=== PATIENT | female | born 1990 | race Caucasian/White ===

== ENCOUNTER 2018-06-07 17:53 | Emergency (ER) | payer MEDICAID, OTHER ==
[2018-06-07 18:43] LABS: HCG UR QUAL POSITIVE
[2018-06-07 19:27] LABS: BASOPHILS % (AUTO) 0.5 %; EOSINOPHILS # (AUTO) 0.2 10^3/uL (0.0-0.7); EOSINOPHILS % (AUTO) 2.4 %; HGB - HEMOGLOBIN 13.4 g/dL (12.0-16.0); LYMPHOCYTES # (AUTO) 2.4 10^3/uL (1.5-3.5); LYMPHOCYTES % (AUTO) 26.6 %; MEAN CORPUSCULAR HEMOGLOBIN 28.9 pg (27.0-31.0); MEAN CORPUSCULAR HGB CONC 33.7 g/dL (32.0-36.0); MEAN CORPUSCULAR VOLUME 85.7 fL (81.0-99.0); MEAN PLATELET VOLUME 7.1 fL (7.9-10.8); MONOCYTES # (AUTO) 0.7 10^3/uL (0.0-1.0); MONOCYTES % (AUTO) 7.3 %; NEUTROPHILS # (AUTO) 5.7 10^3/uL (1.5-6.6); NEUTROPHILS % (AUTO) 63.2 %; PLT - PLATELET COUNT 294 10^3/uL (130-450); RED BLOOD COUNT 4.65 10^6/uL (4.20-5.40); RED CELL DISTRIBUTION WIDTH 13.6 % (12.0-15.0)
[2018-06-07 19:43] LABS: ALBUMIN 4.5 g/dL (3.2-5.5); ALBUMIN/GLOBULIN RATIO 1.5 (1.0-2.2); BILIRUBIN,TOTAL 0.3 mg/dL (0.2-1.0); CALCIUM 9.4 mg/dL (8.5-10.3); CREATININE 0.8 mg/dL (0.4-1.0); TOTAL PROTEIN 7.5 g/dL (6.7-8.2)
[2018-06-07 21:16] LABS: BILIRUBIN,URINE NEGATIVE (NEGATIVE); GLUCOSE, URINE (UA) NEGATIVE (NEGATIVE); KETONES,URINE (UA) NEGATIVE (NEGATIVE); LEUKOCYTE ESTERASE, URINE NEGATIVE (NEGATIVE); NITRITE,URINE NEGATIVE (NEGATIVE); OCCULT BLOOD,URINE LARGE (NEGATIVE); PROTEIN,URINE NEGATIVE (NEGATIVE); UROBILINOGEN,URINE 0.2 (NORMAL) E.U./dL (NORMAL)
--- NOTE | 2018-06-07 21:18 | ED Physician Documentation ---
PD HPI FEMALE - Stated complaint Stated Complaint: BLEEDING/3 WKS - Chief complaint Chief Complaint: General - History obtained from History obtained from: Patient - History of Present Illness Timing - onset: Today Timing - details: Gradual onset, Still present Associated symptoms: Pelvic pain, Vaginal bleeding OB-[employer] History: G (4), P (0) Similar symptoms before: Work up / diagnostics, Treatment Recently seen: Clinic - Additional information Additional information: Patient is a 27 year old female who is presenting to the emergency department for vaginal bleeding. patient had a d/c done a little over a month ago. patient had some vaginal spotting and passed a few clots yesterday. patient took a test that was positive. patient was sent in by her doctor for ultrasound and further evaluation. Review of Systems Ten Systems: 10 systems reviewed and negative GI: reports: Abdominal Pain : reports: Vaginal bleeding Neurologic: denies: Near syncope, Syncope PD PAST MEDICAL HISTORY - Past Medical History Past Medical History: Yes Cardiovascular: Hypertension Respiratory: Asthma Neuro: Migraines Endocrine/Autoimmune: HyPOthyroidism GI: GERD [employer]: Ovarian cysts HEENT: None Psych: Depression, Anxiety, Bipolar disorder, Obsessive compulsive disorder Musculoskeletal: None Derm: None - Past Surgical History Past Surgical History: Yes /[employer]ER: Dilation and currettage - Present Medications Home Medications: Ambulatory Orders Medication Instructions Recorded Confirmed No Known Home Medications 06/07/18 06/07/18 - Allergies Allergies/Adverse Reactions: Allergies Allergy/AdvReac Type Severity Reaction Status Date / Time ondansetron HCl * Allergy Itching Verified 02/24/15 23:32 [From Zofran] - Social History Does the pt smoke?: No Smoking Status: Never smoker Does the pt drink ETOH?: Yes Does the pt have substance abuse?: No - Immunizations Immunizations are current?: Yes - POLST Patient has POLST: No PD ED PE NORMAL - Vitals Vital signs reviewed: Yes - General General: Alert and oriented X 3, No acute distress - HEENT HEENT: Atraumatic - Cardiac Cardiac: RRR - Respiratory Respiratory: No respiratory distress - Abdomen Abdomen: Soft, Non distended - Derm Derm: Normal color, Warm and dry, No rash - Extremities Extremities: No deformity - Neuro Neuro: Alert and oriented X 3, No motor deficit, Normal speech Eye Opening: Spontaneous Motor: Obeys Commands Verbal: Oriented GCS Score: 15 - Psych Psych: Normal mood Results - Vitals Vitals: Oxygen O2 Source Room air - Labs Labs: Laboratory Tests 06/07/18 06/07/18 06/07/18 18:10 19:16 19:16 WBC 9.0 RBC 4.65 Hgb 13.4 Hct 39.8 MCV 85.7 MCH 28.9 MCHC 33.7 RDW 13.6 Plt Count 294 MPV 7.1 L Neut # (Auto) 5.7 Lymph # (Auto) 2.4 [place] # (Auto) 0.7 Eos # (Auto) 0.2 Baso # (Auto) 0.0 Absolute Nucleated RBC 0.01 Nucleated RBC % 0.1 Sodium 136 Potassium 3.4 L Chloride 103 Carbon Dioxide 25 Anion Gap 8.0 BUN 9 Creatinine 0.8 Estimated GFR (MDRD) 87 L Glucose 110 H Calcium 9.4 Total Bilirubin 0.3 AST 68 H ALT 58 Alkaline Phosphatase 79 Total Protein 7.5 Albumin 4.5 Globulin 3.0 Albumin/Globulin Ratio 1.5 Lipase 26 HCG, Quant Urine Color Urine Clarity Urine pH Ur Specific [place] >=1.030 H Urine Protein Urine Glucose (UA) Urine Ketones Urine Occult Blood Urine Nitrite Urine Bilirubin Urine Urobilinogen Ur Leukocyte Esterase Urine RBC Urine WBC Ur Squamous Epith Cells Urine Crystals Amorphous Sediment Urine Bacteria Ur Microscopic Review Urine Culture Comments Urine HCG, Qual POSITIVE Blood Type 06/07/18 06/07/18 06/07/18 19:16 19:33 20:30 WBC RBC Hgb Hct MCV MCH MCHC RDW Plt Count MPV Neut # (Auto) Lymph # (Auto) [place] # (Auto) Eos # (Auto) Baso # (Auto) Absolute Nucleated RBC Nucleated RBC % Sodium Potassium Chloride Carbon Dioxide Anion Gap BUN Creatinine Estimated GFR (MDRD) Glucose Calcium Total Bilirubin AST ALT Alkaline Phosphatase Total Protein Albumin Globulin Albumin/Globulin Ratio Lipase HCG, Quant 4468.00 Urine Color YELLOW Urine Clarity HAZY Urine pH 6.0 Ur Specific [place] >=1.030 H Urine Protein NEGATIVE Urine Glucose (UA) NEGATIVE Urine Ketones NEGATIVE Urine Occult Blood LARGE H Urine Nitrite NEGATIVE Urine Bilirubin NEGATIVE Urine Urobilinogen 0.2 (NORMAL) Ur Leukocyte Esterase NEGATIVE Urine RBC 6-10 H Urine WBC 0-3 Ur Squamous Epith Cells NONE SEEN Urine Crystals 0-2 Calcium Oxalate Amorphous Sediment Moderate Urine Bacteria None Seen Ur Microscopic Review INDICATED Urine Culture Comments NOT INDICATED Urine HCG, Qual Blood Type O POSITIVE - Rads (name of study) pelvic ultrasound Radiology: Final report received (possible early iup vs miscarriage) PD MEDICAL DECISION MAKING - ED course Complexity details: reviewed old records, reviewed results, re-evaluated patient, considered differential, d/w patient ED course: patient was seen and examined at bedside. labs were drawn, urine was collected and imaging was ordered. when patient returned from imaging results were reviewed. patient had early IUP vs miscarriage which was more likely. patient was made aware of the findings and the importance of repeat beta hcg and ultrasound. patient understood and was comfortable with the plan. Patient was stable for discharge with outpatient follow up. - Sepsis Event Vital Signs: Oxygen O2 Source Room air Departure - Departure Disposition: Home, Self Care Clinical Impression: Threatened in first trimester Condition: Good Instructions: ED Miscarriage Poss Follow-Up: primary,care provider [Other] - Tomorrow Comments: Your ultrasound and blood work are consistent with early . There is a chance that you are going to miscarry so it is important that you follow up with your doctor tomorrow to schedule follow up beta hcg and ultrasound. Your hcg today was around 4000. You can take tylenol as needed for pain. You should avoid any heavy lifting or strenuous activity. Discharge Date/Time: 06/07/18 22:20
[2018-06-07 21:25] VITALS: BP 140/92
[2018-06-07 21:28] LABS: CLARITY,URINE HAZY (CLEAR)
[2018-06-07 21:32] LABS: AMORPHOUS SEDIMENT,UR Moderate /LPF; BACTERIA,URINE None Seen /HPF (None Seen); SQUAMOUS EPITHELIAL CELL,UR NONE SEEN (<= Few)
[2018-06-07 21:33] LABS: CRYSTALS,URINE 0-2 Calcium Oxalate /LPF
--- NOTE | 2018-06-07 22:01 | Ultrasound Report ---
Reason: preg, vaginal bleeding Procedure Date: 06/07/2018 Accession Number: [id number] / [id number] Procedure: US - OB Transvaginal CPT Code: FULL RESULT: EXAM: OB TRANSVAGINAL FIRST TRIMESTER OBSTETRIC ULTRASOUND (LESS THAN 11 WEEKS). EXAM DATE: 06/07/2018 08:38 PM. CLINICAL HISTORY: , vaginal bleeding. History of D LMP: Unsure. COMPARISONS: None. TECHNIQUE: Transvaginal ultrasound examination with static image documentation. ASSESSMENT: Gestational Sac: Possible intrauterine gestational sac with flattened irregular appearance seen in the lower uterine segment. Mean gestational sac diameter: 7.7 mm = 4 weeks 5 days. Embryo: CRL (crown-rump length) possible embryo measuring 3.1 mm. Cardiac activity: Not seen. Yolk sac: Not seen. Amniotic fluid: Not accurately assessed at this gestational age. Early placenta: Not visible at this gestational age. Other: No perigestational fluid collection demonstrated. MATERNAL STRUCTURES: Uterus: Anteverted. Unremarkable. Cervix: Closed. Right Ovary/Adnexa: The ovary measures 2.1 x 1.2 x 1.1 cm, volume 1.5 cc. Unremarkable. Left Ovary/Adnexa: The ovary measures 2.5 x 2.7 x 2.6 cm, volume 8.9 cc. Corpus luteum measuring 1.9 cm. Free Fluid: None. Unremarkable. IMPRESSION: 1. Possible intrauterine gestational sac with flattened irregular appearance in the lower uterine segment, could be a spontaneous in progress. The size corresponds to 4 weeks 5 days gestational age. Differential includes focal small complex fluid or pseudo-gestational sac. Possible embryo within this possible gestational sac. No cardiac activity is seen. 2. No evidence for an ectopic . An ectopic is not excluded. Follow-up is recommended. Correlate with serial beta hCGs. RADIA
== END 2018-06-07 22:20 | disposition home or self-care (01) ==
LOC: ED 17:53
DX: O20.0 Threatened abortion (principal); Z3A.01 Less than 8 weeks gestation of pregnancy; I10 Essential (primary) hypertension; E03.9 Hypothyroidism, unspecified
CPT/HCPCS: 36415; 76817; 80053; 81001; 81003; 81025; 83690; 84702; 85025; 86900; 86901; 87086; 99283

== ENCOUNTER 2018-06-17 23:59 | Emergency (ER) | payer OTHER ==
--- NOTE | 2018-06-18 02:55 | Ultrasound Report ---
Reason: with pain Procedure Date: 06/18/2018 Accession Number: [id number] / [id number] Procedure: US - OB First Trimester CPT Code: FULL RESULT: EXAM: FIRST TRIMESTER OBSTETRIC ULTRASOUND (Less than 11 weeks) EXAM DATE: 06/18/2018 02:40 AM. CLINICAL HISTORY: with pain. LMP: Unknown. COMPARISONS: 06/07/2018. TECHNIQUE: Transabdominal and transvaginal ultrasound examination with static image documentation. CLINICAL DATES: EGA 7 weeks 3 days with RAI 02/01/2019 based on prior ultrasound. ASSESSMENT: Gestational Sac: Single intrauterine, in the lower uterine segment. Mean gestational sac diameter: 13.7 mm = 5 weeks 3 days. Embryo: CRL (crown-rump length) 4.4 mm = 6 weeks 2 days. Cardiac activity: 121 beats per minute. Yolk sac: 2.7 mm. Amniotic fluid: Not accurately assessed at this gestational age. Early placenta: Not visible at this gestational age. Other: Small hemorrhage adjacent to the gestational sac measuring 9 x 4 x 5 mm. MATERNAL STRUCTURES: Uterus: Anteverted. Unremarkable. Cervix: Closed. Right Ovary/Adnexa: The ovary measures 3.4 x 1.7 x 1.9 cm, volume 5.7 cc. Unremarkable. Left Ovary/Adnexa: The ovary measures 3.0 x 2.9 x 2.3 cm, volume 10.4 cc. Cyst measuring 1.4 x 1.5 x 1.5 cm. Free Fluid: None. . Other: None. IMPRESSION: 1. Single viable intrauterine in the lower uterine segment at EGA 6 weeks 2 days with RAI 02/09/2019 based on crown-rump length, which is discordant with prior ultrasound. 2. Assigned dating is RAI 02/09/2019 based on current US. 3. Small hemorrhage adjacent to the gestational sac measuring 9 x 4 x 5 mm. RADIA
[2018-06-18 03:45] LABS: BILIRUBIN,URINE NEGATIVE (NEGATIVE); GLUCOSE, URINE (UA) NEGATIVE (NEGATIVE); KETONES,URINE (UA) NEGATIVE (NEGATIVE); LEUKOCYTE ESTERASE, URINE NEGATIVE (NEGATIVE); NITRITE,URINE NEGATIVE (NEGATIVE); OCCULT BLOOD,URINE LARGE (NEGATIVE); PROTEIN,URINE 30 mg/dL (NEGATIVE); UROBILINOGEN,URINE 0.2 (NORMAL) E.U./dL (NORMAL)
[2018-06-18 03:48] LABS: BACTERIA,URINE Rare /HPF (None Seen); CLARITY,URINE CLEAR (CLEAR); RBC,URINE TNTC /HPF (0-5); SQUAMOUS EPITHELIAL CELL,UR NONE SEEN (<= Few)
--- NOTE | 2018-06-18 04:12 | ED Physician Documentation ---
History of Present Illness - Stated complaint Stated Complaint: FEMALE - Chief complaint Chief Complaint: Abd Pain - Additonal information Additional information: 27-year-old female presents the emergency department with vaginal bleeding and lower abdominal cramping. The patient reports being 6 weeks and developed significant bleeding and cramping this afternoon. The patient has a history of multiple miscarriages in the past. The patient denies focal abdominal pain. The patient denies chest pain, shortness of breath. Symptoms are described as moderate. No other associated symptoms. No relieving factors. No triggering factors Review of Systems Constitutional: denies: Fever Eyes: denies: Loss of vision Ears: denies: Ear pain Nose: denies: Foreign Body Throat: denies: Sore throat Cardiac: denies: Palpitations Respiratory: denies: Cough GI: reports: Abdominal Pain (Abdominal cramping) : reports: Vaginal bleeding Skin: denies: Rash Musculoskeletal: denies: Extremity pain Neurologic: denies: Generalized weakness PD PAST MEDICAL HISTORY - Past Medical History Past Medical History: Yes Cardiovascular: Hypertension Respiratory: Asthma Neuro: Migraines Endocrine/Autoimmune: HyPOthyroidism GI: GERD [place]: Ovarian cysts HEENT: None Psych: Depression, Anxiety, Bipolar disorder, Obsessive compulsive disorder Musculoskeletal: None Derm: None - Past Surgical History Past Surgical History: Yes /[place]: Dilation and currettage - Present Medications Home Medications: Ambulatory Orders Medication Instructions Recorded Confirmed Metoclopramide [Reglan] 10 mg PO TID 06/18/18 06/18/18 Pnv95/Ferrous Fumarate/FA 1 tab PO DAILY 06/18/18 06/18/18 [ Formula Tablet] Progesterone,Micronized 06/18/18 [Progesterone] - Allergies Allergies/Adverse Reactions: Allergies Allergy/AdvReac Type Severity Reaction Status Date / Time ondansetron HCl * Allergy Itching Verified 06/18/18 00:13 [From Zofran] - Social History Does the pt smoke?: No Smoking Status: Former smoker Does the pt drink ETOH?: Yes Does the pt have substance abuse?: No - Immunizations Immunizations are current?: Yes - POLST Patient has POLST: No PD ED PE NORMAL - General General: Alert and oriented X 3, No acute distress - HEENT HEENT: Atraumatic, PERRL, EOMI, Ears normal - Neck Neck: Supple, no meningeal sign - Cardiac Cardiac: Strong equal pulses - Respiratory Respiratory: No respiratory distress, Clear bilaterally - Abdomen Abdomen: Soft, Non tender - Derm Derm: Normal color - Neuro Neuro: Alert and oriented X 3, Normal speech - Psych Psych: Normal mood Results - Vitals Vitals: Vital Signs - 24 hr 06/18/18 06/18/18 06/18/18 00:03 01:27 03:36 Temperature 36.3 C L Heart Rate 129 H 92 107 H Respiratory 16 20 20 Rate Blood Pressure 139/101 H 138/76 H 128/89 H O2 Saturation 98 99 100 06/18/18 04:46 Temperature Heart Rate 119 H Respiratory 20 Rate Blood Pressure 128/88 H O2 Saturation 99 Oxygen O2 Source Room air - Labs Labs: Laboratory Tests 06/18/18 06/18/18 06/18/18 03:03 03:55 03:55 WBC 12.2 H RBC 4.22 Hgb 12.0 Hct 36.2 L MCV 85.8 MCH 28.5 MCHC 33.2 RDW 13.8 Plt Count 286 MPV 7.6 L Neut # (Auto) 8.7 H Lymph # (Auto) 2.4 [place] # (Auto) 0.9 Eos # (Auto) 0.1 Baso # (Auto) 0.1 Absolute Nucleated RBC 0.01 Nucleated RBC % 0.1 Sodium 136 Potassium 4.0 Chloride 102 Carbon Dioxide 23 Anion Gap 11.0 BUN 19 Creatinine 0.9 Estimated GFR (MDRD) 76 L Glucose 114 H Calcium 9.2 Total Bilirubin 0.4 AST 29 ALT 35 Alkaline Phosphatase 74 Total Protein 7.5 Albumin 4.3 Globulin 3.2 Albumin/Globulin Ratio 1.3 Lipase 23 HCG, Quant Urine Color RED/BLOODY Urine Clarity CLEAR Urine pH 6.0 Ur Specific [place] >=1.030 H Urine Protein 30 H Urine Glucose (UA) NEGATIVE Urine Ketones NEGATIVE Urine Occult Blood LARGE H Urine Nitrite NEGATIVE Urine Bilirubin NEGATIVE Urine Urobilinogen 0.2 (NORMAL) Ur Leukocyte Esterase NEGATIVE Urine RBC TNTC H Urine WBC 0-3 Ur Squamous Epith Cells NONE SEEN Urine Bacteria Rare Ur Microscopic Review INDICATED Urine Culture Comments NOT INDICATED Blood Type Antibody Screen 06/18/18 06/18/18 03:55 03:55 WBC RBC Hgb Hct MCV MCH MCHC RDW Plt Count MPV Neut # (Auto) Lymph # (Auto) [place] # (Auto) Eos # (Auto) Baso # (Auto) Absolute Nucleated RBC Nucleated RBC % Sodium Potassium Chloride Carbon Dioxide Anion Gap BUN Creatinine Estimated GFR (MDRD) Glucose Calcium Total Bilirubin AST ALT Alkaline Phosphatase Total Protein Albumin Globulin Albumin/Globulin Ratio Lipase HCG, Quant 27497.00 Urine Color Urine Clarity Urine pH Ur Specific [place] Urine Protein Urine Glucose (UA) Urine Ketones Urine Occult Blood Urine Nitrite Urine Bilirubin Urine Urobilinogen Ur Leukocyte Esterase Urine RBC Urine WBC Ur Squamous Epith Cells Urine Bacteria Ur Microscopic Review Urine Culture Comments Blood Type O POSITIVE Antibody Screen NEGATIVE - Rads (name of study) OB US Radiology: Final report received (IMPRESSION: 1. Single viable intrauterine in the lower uterine segment at EGA 6 weeks 2 days with RAI 02/09/2019 based on crown-rump length, which ) PD MEDICAL DECISION MAKING - ED course ED course: On reevaluation the patient is resting comfortably. I discussed with the patient the findings on her ultrasound. I recommended that she follow-up closely with OB for the findings. I recommended nothing per vagina. The patient understands and agrees. I discussed warning signs and recommended returning to the emergency department immediately for worsening or any concerns. - Sepsis Event Vital Signs: Vital Signs - 24 hr 06/18/18 06/18/18 06/18/18 00:03 01:27 03:36 Temperature 36.3 C L Heart Rate 129 H 92 107 H Respiratory 16 20 20 Rate Blood Pressure 139/101 H 138/76 H 128/89 H O2 Saturation 98 99 100 06/18/18 04:46 Temperature Heart Rate 119 H Respiratory 20 Rate Blood Pressure 128/88 H O2 Saturation 99 Oxygen O2 Source Room air Departure - Departure Disposition: 01 Home, Self Care Clinical Impression: Vaginal bleeding affecting early , Abdominal cramping affecting Condition: Good Instructions: Preg 1st Trimester, Preg 1st Trimester Coping, Bleeding Early Preg Comments: Please follow-up with your [employer]IST this week for further evaluation of your bleeding in early . Nothing per vagina until your symptoms resolve and will be clears you to return to full Activity. Please return to the emergency department for any worsening or any concerns.
[2018-06-18 04:14] LABS: BASOPHILS # (AUTO) 0.1 10^3/uL (0.0-0.1); BASOPHILS % (AUTO) 0.6 %; EOSINOPHILS # (AUTO) 0.1 10^3/uL (0.0-0.7); EOSINOPHILS % (AUTO) 0.6 %; LYMPHOCYTES # (AUTO) 2.4 10^3/uL (1.5-3.5); LYMPHOCYTES % (AUTO) 19.7 %; MEAN CORPUSCULAR HEMOGLOBIN 28.5 pg (27.0-31.0); MEAN CORPUSCULAR HGB CONC 33.2 g/dL (32.0-36.0); MEAN CORPUSCULAR VOLUME 85.8 fL (81.0-99.0); MEAN PLATELET VOLUME 7.6 fL (7.9-10.8); MONOCYTES # (AUTO) 0.9 10^3/uL (0.0-1.0); MONOCYTES % (AUTO) 7.6 %; NEUTROPHILS # (AUTO) 8.7 10^3/uL (1.5-6.6); NEUTROPHILS % (AUTO) 71.5 %; PLT - PLATELET COUNT 286 10^3/uL (130-450); RED BLOOD COUNT 4.22 10^6/uL (4.20-5.40); RED CELL DISTRIBUTION WIDTH 13.8 % (12.0-15.0); WHITE BLOOD COUNT 12.2 x10^3/uL (4.8-10.8)
[2018-06-18 04:29] LABS: ALBUMIN 4.3 g/dL (3.2-5.5); ALBUMIN/GLOBULIN RATIO 1.3 (1.0-2.2); BILIRUBIN,TOTAL 0.4 mg/dL (0.2-1.0); CALCIUM 9.2 mg/dL (8.5-10.3); CREATININE 0.9 mg/dL (0.4-1.0); TOTAL PROTEIN 7.5 g/dL (6.7-8.2)
[2018-06-18 05:31] VITALS: BP 130/72
== END 2018-06-18 05:43 | disposition home or self-care (01) ==
LOC: ED 23:59
DX: O46.91 Antepartum hemorrhage, unspecified, first trimester (principal); O26.891 Other specified pregnancy related conditions, first trimester; R10.30 Lower abdominal pain, unspecified; Z3A.01 Less than 8 weeks gestation of pregnancy; I10 Essential (primary) hypertension; E03.9 Hypothyroidism, unspecified; Z87.891 Personal history of nicotine dependence
CPT/HCPCS: 36415; 76801; 76817; 80053; 81001; 81003; 83690; 84702; 85025; 86850; 86900; 86901; 87086; 99283

== ENCOUNTER 2019-03-19 10:16 | Day surgery (SDC) | payer OTHER ==
[2019-03-19 10:42] LABS: HCG UR QUAL NEGATIVE
[2019-03-19] MEDS ORDERED: LACTATED RINGERS 1,000 ML IV ONE ×2 (10:47→14:01)
[2019-03-19] MEDS ORDERED: DOXYCYCLINE INJ 100 MG in SODIUM CHLORIDE 0.9% MINIBAG 100 ML IV ONE (11:00)
--- NOTE | 2019-03-19 12:36 | ANESTHESIA ---
Pre-Anesthesia VS, & Labs - Diagnosis recurrent loss - Procedure hysterscopy Vital Signs: Temp Pulse Resp BP Pulse Ox 36.8 C 76 18 153/89 H 98 03/19/19 10:36 03/19/19 10:36 03/19/19 10:36 03/19/19 10:36 03/19/19 10:36 Height 5 ft 8.9 in Weight (kg) 119.6 kg Body Mass Index 36.9 - NPO >8 hours - Is Patient ?: No Home Medications and Allergies Home Medications: Ambulatory Orders Albuterol Sulfate [Albuterol Sulfate Hfa] 8.5 gm IH 03/14/19 Albuterol Sulfate [Albuterol Sulfate Hfa] 8.5 gm IH 03/14/19 Allergies/Adverse Reactions: Allergies Allergy/AdvReac Type Severity Reaction Status Date / Time ondansetron HCl * Allergy Nausea Verified 03/14/19 16:00 [From Zofran] Anes History & Medical History - Anesthetic History Anesthesia Complications: reports: No previous complications - Medical History Cardiovascular: reports: None Pulmonary: reports: Asthma (last albuterol use on tuesday), Other (snores, observed apnea at night.) Gastrointestinal: reports: None Urinary: reports: None Neuro: reports: Migraines Musculoskeletal: reports: Fibromyalgia Endocrine/Autoimmune: reports: None Blood Disorders: reports: None Skin: reports: None Smoking Status: Former smoker (quit 12 months ago.) Psychosocial: reports: Depression, Anxiety, Other (PTSD) - Surgical History Gynecologic: Dilation and currettage Exam General: Alert, Oriented x3, Cooperative, No acute distress Dental: WNL Mouth Openin Fingerbreadth Neck Mobility: Normal Mallampati classification: II Thyromental Distance: greater than 6 cm Respiratory: Lungs clear, Normal breath sounds, No respiratory distress, No accessory muscle use Cardiovascular: Regular rate, Normal S1, Normal S2, No murmurs Mental/Cognitive Status: Alert/Oriented X3, Normal for patient Plan Anesthesia Type: General Consent for Procedure(s) Verified and Reviewed: Yes Code Status: Attempt Resuscitation ASA classification: 2-Mild systemic disease Is this case an emergency?: No
[2019-03-19] MEDS ORDERED: LIDOCAINE 1%-EPI 1:100000 30 ML MDV SUBQ ONE (13:38)
[2019-03-19] MEDS ORDERED: HYDROcod/ACETAM 10 MG/325 MG TABLET PO PRN (13:50)
[2019-03-19] MEDS ORDERED: PROPOFOL 200 MG/20 ML VIAL IVP ONE (13:51)
[2019-03-19] MEDS ORDERED: MIDAZOLAM 2 MG/2 ML VIAL IVP ONE (13:51)
[2019-03-19] MEDS ORDERED: LIDOCAINE-MPF 2% 5 ML VIAL IM ONE (13:51)
[2019-03-19] MEDS ORDERED: fentaNYL 100 MCG/2 ML VIAL IVP ONE (13:51)
[2019-03-19] MEDS ORDERED: KETOROLAC 30 MG/ML VIAL IVP ONE (13:51)
[2019-03-19] MEDS ORDERED: DEXAMETHASONE 4 MG/ML VIAL IVP ONE (13:51)
--- NOTE | 2019-03-19 13:53 | OPERATIVE REPORT ---
Operative Report - General Procedure Date: 03/19/19 Planned Procedure: Hysteroscopy Pre-Op Diagnosis: Recurrent Loss Procedure Performed: Diagnostic Hysteroscopy Post Op Diagnosis: Normal endometrial cavity - Procedure Note Primary Surgeon: Dr. Yaquelin Elizondo Secondary Surgeon: None Anesthesia Provider: LUCIAN Fink Anesthesia Technique: General LMA Pathology: None IV Fluids (mL): 300 Estimated Blood Loss (mL): 5 Urine Output (mL): 150 Indications: The patient is a 28-year-old 4, para 0, abortus 4, female here for hysteroscopy to evaluate the endometrial cavity for a possible reason for her recurrent losses. Saline sonohystogram was attempted in the clinic twice and had to be abandoned due to patient discomfort. She has had 4 losses, the most recent in April 2018, which was complicated by hemorrhage and need for emergent dilation and curettage and blood transfusion. The procedure, risks, benefits, limitations, and expectations of surgery were discussed. The consent was reviewed and signed prior to the date of surgery. Findings: Exam under anesthesia: The uterus was midplane and approximately 7 weeks in size. No adnexal masses were palpable. Operative findings: The cervix was normal in appearance. The endometrial cavity was fully distended with saline and appeared normal. There were no polyps, fibroids, or uterine septum noted. Complications: None - Other Other Information/Narrative: The patient was taken to the operating room, where general anesthesia with LMA was administered without difficulty. She was then positioned in the high dorsal lithotomy position with her lower extremities in [place] stirrups. Exam under anesthesia was performed with the findings as noted above. Vagina and perineum were then prepped and draped in a sterile fashion, and an in-an-out catheterization was performed. Procedure Time-Out was then performed. A sterile bivalve speculum was then inserted into the vagina. The anterior lip of the cervix was grasped with a single toothed tenaculum. One percent Lidocaine with epinephrine was injected at the 0200, 0400, 0700, and 1000 positions for a paracervical block. The cervix was then serially dilated with Hegar dilators until the 30 degree diagnostic hysteroscope could be inserted. Using saline for distension, the endometrial cavity was visualized and appeared normal. The scope was then removed, and the tenaculum removed from the cervix. The tenaculum sites were hemostatic with gentle pressure. No bleeding was noted, and the speculum was then removed. At this point the procedure was deemed complete. The patient was then replaced supine, awakened, and transferred to the PACU in stable condition. There were no complications. Sponge, lap, and needle count were correct x 3.
[2019-03-19 14:26] VITALS: BP 117/67
== END 2019-03-19 10:17 | disposition home or self-care (01) ==
LOC: SDS 10:16
PROVIDERS: ATTEND Obstetrics & Gynecology
PROC: 0UJD8ZZ Inspection of Uterus and Cervix, Via Natural or Artificial Opening Endoscopic (ICD-10-PCS; principal; 2019-03-19 12:25)
DX: N96 Recurrent pregnancy loss (principal); E66.9 Obesity, unspecified; J45.909 Unspecified asthma, uncomplicated; G47.30 Sleep apnea, unspecified; Z68.36 Body mass index [BMI] 36.0-36.9, adult; Z87.891 Personal history of nicotine dependence
CPT/HCPCS: 58555; 81025; J7120

== ENCOUNTER 2023-09-26 12:48 | Emergency (ER) | payer OTHER ==
--- NOTE | 2023-09-26 13:33 | ED Physician Documentation ---
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 It started yesterday, the patient states she was lifting a box that was about 25 pounds and she did not recall any injury or pain at that time but shortly thereafter she noted that her distal forearm into the wrist was very sore particularly when she touched it or if she supinated or pronated the right arm. She states she can move her fingers without difficulty but sometimes the right fifth and fourth digits feel cold and a little bit tingly. She iced it last night But has not attempted any pain medication. It continues to be quite sore today and she thus came in for an evaluation. PD PAST MEDICAL HISTORY - Past Medical History Past Medical History: Yes Cardiovascular: Hypertension Respiratory: Asthma, Other Neuro: Migraines Endocrine/Autoimmune: None GI: GERD CANVAS MARKER: Ovarian cysts : None HEENT: None Psych: Depression, Bipolar disorder Musculoskeletal: Fibromyalgia Derm: None - Past Surgical History Past Surgical History: Yes /CANVAS MARKER: Dilation and currettage - Present Medications Home Medications: Ambulatory Orders Medication Instructions Recorded Confirmed No Known Home Medications 09/26/23 09/26/23 - Allergies Allergies/Adverse Reactions: Allergies Allergy/AdvReac Type Severity Reaction Status Date / Time ondansetron HCl * Allergy Nausea Verified 09/26/23 12:51 [From Zofran] - Social History Does the pt smoke?: No Smoking Status: Former smoker Does the pt drink ETOH?: Yes Does the pt have substance abuse?: No - Immunizations Immunizations are current?: Yes - POLST Patient has POLST: No PD ED PE NORMAL - Vitals Vital signs reviewed: Yes - General General: Alert and oriented X 3, No acute distress, Well developed/nourished - Derm Derm: Normal color, Warm and dry, No rash - Extremities Extremities: No deformity, Other (There is tenderness of the lateral aspect of the right forearm and right wrist. She can flex and extend her fingers and flex and extend at the elbow. No obvious deformity. No swelling. No erythema.) Results - Vitals Vitals: Vital Signs - 24 hr 09/26/23 09/26/23 12:51 13:50 Temperature 36.6 C Heart Rate 82 78 Respiratory 16 14 Rate Blood Pressure 171/106 H 145/86 H O2 Saturation 99 100 Oxygen O2 Source Room air - Rads (name of study) No standard instances Relevant Findings:: Final report received PD Medical Decision Making - ED course Complexity details: reviewed results, re-evaluated patient, considered differential, d/w patient ED course: 39-year-old female presented with right wrist pain as described in HPI. Patient denied any traumatic injury though the pain did occur after lifting a somewhat heavy box. On exam, patient has soft tissue tenderness and tenderness with pronation and supination of the right forearm that there are no obvious deformities, no sign of infection no erythema no joint swelling. I did obtain x-ray which is negative for bony injury. I discussed with patient this likely a muscle strain or possibly a wrist sprain and I recommended supportive measures including cool compress, NSAIDs and we have given the patient a wrist brace. I recommended resting the area for the next week or so, follow-up with PCP if ongoing pain. Departure - Departure Disposition: 01 Home, Self Care Clinical Impression: Right wrist sprain Qualifiers: Encounter type: initial encounter Qualified Code(s): S63.501A - Unspecified sprain of right wrist, initial encounter Condition: Good Instructions: ED Sprain Wrist Comments: Your x-ray does not show any sign of fracture or dislocation. You do have quite a bit of soft tissue pain and pain with motion that is suggestive of either a sprain of the tendon or a strain of the muscle. This generally responds well to rest, cool compress and NSAIDs. Please utilize the wrist brace we have provided you if it provides comfort. Keep elevated and use a cool compress and try to decrease repetitive range of motion over the course of the next week or so and then can resume activities. If you have ongoing pain, follow-up with your primary doctor and consider physical therapy. Forms: PCP List
--- NOTE | 2023-09-26 13:39 | XRAY Report ---
PROCEDURE: Wrist 3 View RT INDICATIONS: wrist inj TECHNIQUE: 3 views of the wrist were acquired. COMPARISON: None. FINDINGS: Bones: No fractures or dislocations. No suspicious bony lesions. Soft tissues: No suspicious soft tissue calcifications or masses. IMPRESSION: No displaced fractures are seen on this plain film study. In this patient with a given history of trauma, please correlate with focal tenderness. If clinically appropriate, please consider a short-term follow-up plain films series versus a dedicated CT study. Reviewed by: Pacheco Guo MD on 09/26/2023 12:38 PM [facility] Approved by: Pacheco Guo MD on 09/26/2023 12:38 PM [facility] Station ID: [id number]
[2023-09-26 14:09] VITALS: BP 145/86; O2SAT 100
== END 2023-09-26 13:59 | disposition home or self-care (01) ==
LOC: ED 12:48
DX: S63.501A Unspecified sprain of right wrist, initial encounter (principal); X50.0XXA Overexertion from strenuous movement or load, initial encounter; Y93.89 Activity, other specified; Y92.009 Unspecified place in unspecified non-institutional (private) residence as the place of occurrence of the external cause; Z87.891 Personal history of nicotine dependence
CPT/HCPCS: 99283

== ENCOUNTER 2024-05-21 16:07 | Emergency (ER) | payer OTHER ==
--- NOTE | 2024-05-21 16:18 | ED Physician Documentation ---
PD HPI CHEST PAIN - Stated complaint Stated Complaint: CP/SOA - Chief complaint Chief Complaint: Cardiac - History obtained from History obtained from: Patient - Additional information Additional information: 33-year-old woman with history of hypertension, does not smoke but quit several years ago. No history of heart disease. She presents for the evaluation of sharp left chest pain that started during light activity about 3 hours ago. It is worse if she takes a deep breath and it is worse if she presses on the area. There was no injury. No cough. No shortness of breath. No pedal edema or calf pain. No recent travel or control use. PD PAST MEDICAL HISTORY - Past Medical History Cardiovascular: Hypertension Respiratory: Asthma, Other Neuro: Migraines Endocrine/Autoimmune: None GI: GERD UPPER STITCHER: Ovarian cysts : None HEENT: None Psych: Depression, Bipolar disorder Musculoskeletal: Fibromyalgia Derm: None - Past Surgical History Past Surgical History: Yes /UPPER STITCHER: Dilation and currettage - Present Medications Home Medications: Ambulatory Orders Medication Instructions Recorded Confirmed No Known Home Medications 09/26/23 05/21/24 - Allergies Allergies/Adverse Reactions: Allergies Allergy/AdvReac Type Severity Reaction Status Date / Time ondansetron HCl * Allergy Nausea Verified 05/21/24 16:23 [From Zofran] - Social History Does the pt smoke?: No Smoking Status: Never smoker Does the pt drink ETOH?: Yes Does the pt have substance abuse?: No - Immunizations Immunizations are current?: Yes - POLST Patient has POLST: No PD ED PE NORMAL - Vitals Vital signs reviewed: Yes - General General: Alert and oriented X 3, No acute distress - Neck Neck: Supple, no meningeal sign - Cardiac Cardiac: RRR, No murmur - Respiratory Respiratory: No respiratory distress, Clear bilaterally - Abdomen Abdomen: Non tender - Extremities Extremities: No edema, No calf tenderness / cord - Neuro Neuro: Alert and oriented X 3 Results - Vitals Vitals: Vital Signs - 24 hr 05/21/24 16:13 Temperature 36.5 C Heart Rate 74 Respiratory 18 Rate Blood Pressure 170/100 H O2 Saturation 100 Oxygen O2 Source Room air - EKG (time done) 1448 EKG releavant findings:: EKG personally interpreted by author of this note. Relevant findings are: Rate: Rate (enter#) (68) Rhythm: NSR [place]: Normal Intervals: Normal CO QRS: Normal Ischemia: Normal ST segments - Labs Labs: Laboratory Tests 05/21/24 05/21/24 16:35 16:35 WBC 8.8 RBC 5.19 Hgb 14.5 Hct 45.1 MCV 86.9 MCH 27.9 MCHC 32.2 RDW 13.4 Plt Count 327 MPV 8.9 Neut # (Auto) 5.5 Lymph # (Auto) 2.5 [place] # (Auto) 0.5 Eos # (Auto) 0.2 Baso # (Auto) 0.0 Absolute Nucleated RBC 0.00 Nucleated RBC % 0.0 Sodium 140 Potassium 3.5 Chloride 103 Carbon Dioxide 29 Anion Gap 8.0 BUN 9 Creatinine 0.8 Estimated GFR (MDRD) 83 L Glucose 89 Calcium 9.9 Total Bilirubin 0.7 AST 33 ALT 55 Alkaline Phosphatase 93 Troponin I High Sens 3.8 Total Protein 8.1 Albumin 4.6 Globulin 3.5 Albumin/Globulin Ratio 1.3 - Rads (name of study) 1v [id number] Relevant Findings:: Final report received, EMP independent interpretation of test PD Medical Decision Making - ED course ED course: She presents for chest pain, the history and physical is most consistent with a musculoskeletal cause. CBC and CMP were unremarkable. No radiation to the back, or wide mediastinum to suggest dissection. HEART score 1 PERC negative Departure - Departure Disposition: 01 Home, Self Care Clinical Impression: Chest wall pain Condition: Good Record reviewed to determine appropriate education?: Yes Instructions: ED Chest Pain Atypical Unkn Cause Comments: Your testing including EKG, chest x-ray, and blood work including troponin testing was all normal/negative. The description suggest that is most likely chest wall pain as opposed to internal pain from your heart. Tylenol and/or ibuprofen as needed for pain. Return for new or worsening symptoms. Follow-up with your primary care physician, next available appointment. Forms: PCP List
[2024-05-21 16:19] VITALS: O2SAT 100
--- NOTE | 2024-05-21 16:35 | XRAY Report ---
PROCEDURE: Chest 1V INDICATIONS: cp TECHNIQUE: One view of the chest was acquired. COMPARISON: 11/06/2014 FINDINGS: Surgical changes and devices: None. Lungs and pleura: No pleural effusions or pneumothorax. Lungs are clear. Mediastinum: Mediastinal contours appear normal. Heart size is normal. Bones and chest wall: No suspicious bony lesions. Overlying soft tissues appear unremarkable. IMPRESSION: No acute cardiopulmonary process. Reviewed by: Talib Ceballos MD on 05/21/2024 4:34 PM PDT Approved by: Talib Ceballos MD on 05/21/2024 4:34 PM PDT Station ID: [id number]
[2024-05-21 16:49] LABS: BASOPHILS % (AUTO) 0.5 %; EOSINOPHILS # (AUTO) 0.2 10^3/uL (0.0-0.7); HCT - HEMATOCRIT 45.1 % (37.0-47.0); HGB - HEMOGLOBIN 14.5 g/dL (12.0-16.0); LYMPHOCYTES # (AUTO) 2.5 10^3/uL (1.5-3.5); LYMPHOCYTES % (AUTO) 28.1 %; MEAN CORPUSCULAR HEMOGLOBIN 27.9 pg (27.0-31.0); MEAN CORPUSCULAR HGB CONC 32.2 g/dL (32.0-36.0); MEAN CORPUSCULAR VOLUME 86.9 fL (81.0-99.0); MEAN PLATELET VOLUME 8.9 fL (7.9-10.8); MONOCYTES # (AUTO) 0.5 10^3/uL (0.0-1.0); MONOCYTES % (AUTO) 6.1 %; NEUTROPHILS # (AUTO) 5.5 10^3/uL (1.5-6.6); PLT - PLATELET COUNT 327 10^3/uL (130-450); RED BLOOD COUNT 5.19 10^6/uL (4.20-5.40); RED CELL DISTRIBUTION WIDTH 13.4 % (12.0-15.0); WHITE BLOOD COUNT 8.8 x10^3/uL (4.8-10.8)
[2024-05-21 17:11] LABS: TROPONIN I HIGH SENSITIVITY 3.8 ng/L (2.3-14.8)
[2024-05-21 17:20] LABS: ALBUMIN 4.6 g/dL (3.2-5.5); ALBUMIN/GLOBULIN RATIO 1.3 (1.0-2.2); BILIRUBIN,TOTAL 0.7 mg/dL (0.2-1.0); CALCIUM 9.9 mg/dL (8.5-10.3); CREATININE 0.8 mg/dL (0.6-1.3); POTASSIUM 3.5 mmol/L (3.5-4.5); TOTAL PROTEIN 8.1 g/dL (6.4-8.9)
[2024-05-21 17:56] VITALS: BP 132/82
== END 2024-05-21 17:55 | disposition home or self-care (01) ==
LOC: ED 16:07
DX: R07.89 Other chest pain (principal); Z87.891 Personal history of nicotine dependence
CPT/HCPCS: 36415; 80053; 84484; 85025; 93005; 99283; 99284